=== PATIENT | male | born 1955 | race Caucasian/White ===

== ENCOUNTER 2017-01-24 07:21 | Emergency (ER) | payer SELFPAY ==
[~2017-01-24] VITALS: Ht 190.5 cm; Wt 164.0 kg
[~2017-01-24 07:21] MED LIST: DIAZ5 PO; FLEX10TA PO; GABA800T PO; IBUP-238 PO; LORTA10 PO; LORTA5 PO; XANA1TAB6 PO
[2017-01-24 07:25] VITALS: BP 156/96; PULSE 81; RESP 18; TEMP 98.6; O2SAT 94
[2017-01-24] MEDS ORDERED: XANA1TAB2 PO (07:39)
--- NOTE | 2017-01-24 07:53 | PD ---
HPI . Left knee pain Chief Complaint: Musculoskeletal Complaint Time Seen by Provider: 07:41 Travel History International Travel<30 days: No Contact w/Intl Traveler<30days: No Traveled to known affect area: No History of Present Illness HPI Patient presents with about a 10 day history of left knee pain. He works as a transporter driving a van. He was working in the [employer] when he got out of the van and his left foot slipped causing his left knee to twist. He has had pain in his left knee since then. Pain is exacerbated by walking and getting in and out of the van. He states that he has taken ibuprofen and aspirin with no relief of his pain. He reports associated muscle cramps around the knee. [facility] Past Medical History Anxiety: Yes Depression: Yes Cancer: No Cardiovascular Problems: No Diminished Hearing: No Endocrine: No Genitourinary: No Immune Disorder: No Implanted Vascular Access Dvce: No Musculoskeletal: Yes (chronic back pain since 1993) Neurologic: No Psychiatric: Yes Reproductive: No Respiratory: No Influenza Vaccination: No ?: Not Past Surgical History Oral Surgery: Yes (TONSILLECTOMY) Tonsillectomy: Yes Other Surgery: Yes Social History Alcohol Use: No Tobacco Use: No Substance Use: Yes (MARIJUANA) Allergies-Medications (Allergen,Severity, Reaction): Coded Allergies: Sulfa (Verified Allergy, Intermediate, 01/24/17) Erythromycin (Verified Allergy, Mild, 01/24/17) *MDRO Multi-Drug Resistant Organism (Verified Allergy, Unknown, 01/24/17) 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 SKIN: Warm and dry. CARDIOVASCULAR: Regular rate and rhythm. RESPIRATORY: No accessory muscle use. MUSCULOSKELETAL: No obvious deformities. No edema. Tender to the lateral aspect of the left knee. Knee is stable. NEUROLOGICAL: Awake and alert. No obvious cranial nerve deficits. Motor grossly within normal limits. Normal speech. PSYCHIATRIC: Appropriate mood and affect; insight and judgment normal. Data Data Last Documented VS Vital Signs Date Time Temp Pulse Resp B/P Pulse Ox O2 Delivery O2 Flow Rate FiO2 01/24/17 08:21 16 01/24/17 07:25 98.6 81 156/96 94 Orders Knee, Complete (4vws) (01/24/17 07:46) Morphine Inj (Morphine Inj) (01/24/17 08:00) Lorazepam Inj (Ativan Inj) (01/24/17 08:00) MDM Medical Decision Making Medical Screen Exam Complete: Yes Emergency Medical Condition: Yes Differential Diagnosis Differential diagnosis of joint pain includes but is not limited to arthritis, gout, sprain/strain, fracture, dislocation Narrative Course Patient presents with left knee pain following a twisting injury 10 days ago. Left knee x-ray to my interpretation is negative for fracture or dislocation. Diagnosis Primary Impression: Strain of left knee Qualified Code: S86.912A - Strain of left knee, initial encounter Referrals: Jasvir Rivera MD 3 days Patient Instructions: General Instructions, Knee Sprain (DC), Narcotic given in the ED Additional Instructions: Rest, ice and elevation Med/Other Pt SpecificInfo: Prescription(s) given Scripts Ibuprofen 800 Mg [id number] Mg PO Q8H PRN (pain) #30 TAB Ref 0 Prov:Aurea Hawley MD 01/24/17 Tramadol (Ultram)50 Mg Tab50 Mg PO Q4H PRN (PAIN) #12 TAB Ref 0 Prov:Aurea Hawley MD 01/24/17 Disposition: 01 DISCHARGE HOME Condition: Stable Aurea Hawley MD Jan 24, 2017 07:53
[2017-01-24] MEDS ORDERED: MORPHINE SULFATE 4 MG/ML INJ IM ONE (08:00)
[2017-01-24] MEDS ORDERED: LORazepam 2 MG/ML VIAL IM ONE (08:00)
[2017-01-24 08:21] VITALS: RESP 16
[2017-01-24] MEDS ORDERED: ULTR50TA5 PO (08:36)
[2017-01-24] MEDS ORDERED: IBUP800T23 PO (08:36)
--- NOTE | 2017-01-24 09:11 | RADHPO ---
EXAM DATE/TIME: 01/24/2017 08:09 [facility] COMPARISON: No previous studies available for comparison. INDICATIONS : Left knee pain. MEDICAL HISTORY : None. SURGICAL HISTORY : None. ENCOUNTER: Initial ACUITY: 1 week PAIN SCORE: 6/10 LOCATION: Left knee FINDINGS: Four view examination of the left knee demonstrates no evidence of fracture or dislocation. Moderate/ severe degenerative changes. No effusion. Diffuse soft tissue swelling. CONCLUSION: Moderate to severe tricompartment osteoarthritis. No fracture. Henrry Brown MD on January 24, 2017 at 9:08 Board Certified Radiologist. This report was verified electronically.
== END 2017-01-24 09:02 | disposition home or self-care (01) ==
LOC: PHED 07:21
DX: S86.812A Strain of other muscle(s) and tendon(s) at lower leg level, left leg, initial encounter (principal); V58.4XXA Person boarding or alighting a pick-up truck or van injured in noncollision transport accident, initial encounter; Y93.9 Activity, unspecified; Y92.9 Unspecified place or not applicable; Y99.0 Civilian activity done for income or pay
CPT/HCPCS: 73564; 96372; 99283; J2060; J2270; L1830

== ENCOUNTER 2017-04-28 00:02 | Emergency (ER) | payer SELFPAY ==
[~2017-04-28] VITALS: Ht 190.5 cm; Wt 160.4 kg
[~2017-04-28 00:02] MED LIST changes: -DIAZ5 PO; -FLEX10TA PO; -GABA800T PO; -IBUP-238 PO; +IBUP800T23 PO; -LORTA10 PO; -LORTA5 PO; +ULTR50TA5 PO; +XANA1TAB2 PO; -XANA1TAB6 PO
[2017-04-28 00:05] VITALS: BP 146/85; PULSE 87; RESP 16; TEMP 98.1; O2SAT 96
[2017-04-28] MEDS ORDERED: oxyCODONE/ACETAMINOPHEN 5 MG/325 MG TAB PO ONE (00:45)
--- NOTE | 2017-04-28 01:17 | PD ---
HPI Chief Complaint: Oral / Dental Pain or Problem Time Seen by Provider: 00:24 Travel History International Travel<30 days: No Contact w/Intl Traveler<30days: No History of Present Illness HPI Patient is a 61 year old male who comes in complaining of tooth pain after he says he knocked his tooth out last night. He says he was working on a car when the tire gertrudis hit him in the face and knocked out one of his lower teeth. He says he has been in severe pain ever since. He says he has a lot of pain when he moves his jaw and has noticed swelling to the area. He has tried taking BC powder for the pain. He denies any other injuries. PFSH Past Medical History Anxiety: Yes Cancer: No Cardiovascular Problems: No Diminished Hearing: No Endocrine: No Genitourinary: No Immune Disorder: No Implanted Vascular Access Dvce: No Musculoskeletal: Yes Neurologic: No Psychiatric: Yes Reproductive: No Respiratory: No Influenza Vaccination: No Past Surgical History Oral Surgery: Yes (TONSILLECTOMY) Tonsillectomy: Yes Other Surgery: Yes Social History Alcohol Use: Yes (SOCIALLY) Tobacco Use: No Substance Use: Yes (MARIJUANA) Allergies-Medications (Allergen,Severity, Reaction): Coded Allergies: Sulfa (Verified Allergy, Intermediate, 01/24/17) Erythromycin (Verified Allergy, Mild, 01/24/17) *MDRO Multi-Drug Resistant Organism (Verified Allergy, Unknown, 01/24/17) 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 Reported Meds & Prescriptions Reported Meds & Active Scripts Active Ibuprofen 800 Mg Tab 800 Mg PO Q8H PRN Ultram (Tramadol HCl) 50 Mg Tab 50 Mg PO Q4H PRN Reported Xanax (Alprazolam) 1 Mg Tab 1 Mg PO HS PRN Review of Systems General / Constitutional: No: Fever, Chills HENT: Positive: Dental Difficulties, No: Headaches, Lightheadedness Cardiovascular: No: Chest Pain or Discomfort Respiratory: No: Shortness of Breath Gastrointestinal: No: Nausea, Vomiting Skin: No Rash, No Change in Pigmentation Neurologic: No: Weakness, Dizziness Physical Exam Narrative GENERAL: Awake and alert, in no acute distress. SKIN: Focused skin assessment warm/dry. HEAD: Atraumatic. Normocephalic. EYES: Pupils equal and round. No scleral icterus. ENT: Mucous membranes pink and moist. edema/fluctuance at tooth 27, which is broken. NECK: Trachea midline. No JVD. CARDIOVASCULAR: Regular rate and rhythm. No murmur appreciated. RESPIRATORY: No accessory muscle use. Clear to auscultation. Breath sounds equal bilaterally. NEUROLOGICAL: Awake and alert. No obvious cranial nerve deficits. Motor grossly within normal limits. Normal speech. PSYCHIATRIC: Appropriate mood and affect; insight and judgment normal. Data Data Last Documented VS Vital Signs Date Time Temp Pulse Resp B/P Pulse Ox O2 Delivery O2 Flow Rate FiO2 04/28/17 00:27 20 04/28/17 00:05 98.1 87 146/85 96 Orders Oxycodone-Acetamin 5-325 Mg (Percocet (04/28/17 00:45) Ct Facial Bones W/O Iv Cont (04/28/17 ) MDM Medical Decision Making Medical Screen Exam Complete: Yes Emergency Medical Condition: Yes Differential Diagnosis Dental abscess versus broken tooth versus jaw fracture Narrative Course Patient is a 61-year-old male who comes in complaining of tooth pain after he hit himself in the face last night and broke his tooth. Exam shows an area of fluctuance around tooth [address] of the facial bones performed shows no jaw fracture. Abscess was I indeed with 2 cc of pus drained. Patient given Percocet for pain. He'll be discharged with a prescription for penicillin and pain medicine. Advised to follow-up with a dentist. Advised to return to the ED as needed for any worsening symptoms. Procedures Procedure Narrative An 18-gauge needle was used to drain the abscess at tooth 27. 2 cc of pus was drained. Patient tolerated the procedure well. There were no complications. Diagnosis Primary Impression: Dental abscess Patient Instructions: Dental Abscess (ED), General Instructions Additional Instructions: Take all of your antibiotic. He can take ibuprofen for pain or a pain pill as needed. Follow-up with a dentist. Return to the ED as needed for any worsening symptoms. Scripts Tramadol 50 Mg Tab50 Mg PO Q6H PRN (PAIN) #14 TAB Ref 0 Prov:Candie Morales MD 04/28/17 Penicillin V Potassium 500 Mg [id number] Mg PO Q8H 7 Days Ref 0 Prov:Candie Morales MD 04/28/17 Disposition: 01 DISCHARGE HOME Condition: Stable Radha Moralesica B MD Apr 28, 2017 01:17
--- NOTE | 2017-04-28 01:31 | RADHPO ---
EXAM DATE/TIME: 04/28/2017 00:59 [facility] COMPARISON: No previous studies available for comparison. INDICATIONS : Trauma to the right side of jawline. Knocked out tooth. RADIATION DOSE: 30.16 CTDIvol (mGy) MEDICAL HISTORY : None SURGICAL HISTORY : Appendectomy. Cholecystectomy.Cervical laminectomy ENCOUNTER: Initial ACUITY: 2 days PAIN SCORE: 2/10 LOCATION: Right facial TECHNIQUE: Volumetric scanning of the facial bones was performed. Using automated exposure control and adjustme nt of the mA and/or kV according to patient size, radiation dose was kept as low as reasonably achiev able to obtain optimal diagnostic quality images. FINDINGS: ORBITS: The orbital and infraorbital osseous structures are intact. The retroconal structures have a normal configuration. No radiopaque foreign bodies are seen. NASAL BONE: The nasal bone and maxillary spine are intact ZYGOMATIC ARCHES: Symmetric without evidence of fracture. SINUSES: The maxillary, ethmoid and frontal sinuses are intact. No air-fluid levels seen. NASAL CAVITY: The nasal septum is intact and midline. The lacrimal ducts are intact. SOFT TISSUES: No radiopaque foreign bodies seen. No soft-tissue swelling is seen. INTRACRANIAL: No intracranial air seen. CRIBIFORM PLATE: Grossly intact. Mandible is intact. Numerous missing, broken and dictating upper and lower teeth. CONCLUSION: Broken and missing teeth, both upper and lower. No facial fracture demonstrated. Mandible intact. Mike Stone MD on April 28, 2017 at 1:28 Board Certified Radiologist. This report was verified electronically.
[2017-04-28] MEDS ORDERED: TRAM50TA PO (01:43)
[2017-04-28] MEDS ORDERED: PENI500T PO (01:43)
[2017-04-28 01:55] VITALS: BP 141/72
== END 2017-04-28 02:05 | disposition home or self-care (01) ==
LOC: PHED 00:02
DX: K04.7 Periapical abscess without sinus (principal)
CPT/HCPCS: 41800; 70486

== ENCOUNTER 2018-01-02 12:26 | Emergency (ER) | payer SELFPAY ==
[~2018-01-02] VITALS: Ht 193 cm; Wt 160.0 kg
[~2018-01-02 12:26] MED LIST changes: +IBUP1TAB7 PO; -IBUP800T23 PO; +PENI500T PO; +TRAM50 PO; +TRAM50TA PO; -ULTR50TA5 PO
[2018-01-02 12:42] VITALS: BP 114/63; PULSE 83; RESP 18; TEMP 99.4; O2SAT 94
[2018-01-02 12:56] LABS: BILIRUBIN, URINE NEG (NEG); BLOOD, URINE MOD (NEG); GLUCOSE,URINE NEG (NEG); KETONE, URINE NEG (NEG); NITRITE,URINE NEG (NEG); URINE LEUKOCYTE ESTERASE NEG (NEG)
[2018-01-02 13:02] LABS: URINE COLOR YELLOW (YELLW/STRAW)
[2018-01-02 13:03] LABS: AMORPHOUS SEDIMENT, URINE FEW; SQUAMOUS EPITHELIAL CELL URINE 0-5 /hpf (0-5)
[2018-01-02] MEDS ORDERED: SODIUM CHLORIDE 0.9% FLUSH 10 ML FLUSH IV FLUSH PRN (13:30)
[2018-01-02] MEDS ORDERED: ONDANSETRON HCL 4 MG/2 ML VIAL IVP ONE (13:30)
[2018-01-02] MEDS ORDERED: SODIUM CHLORID 0.9% 500 ML INJ 500 ML IV ONE (13:30)
[2018-01-02] MEDS ORDERED: KETOROLAC TROMETHAMINE 30 MG/ML (IVP) VIAL IVP ONE (13:30)
[2018-01-02 13:55] LABS: BASOPHIL % 0.9 % (0.0-2.0); EOSINOPHIL # 0.1 TH/MM3 (0-0.4); EOSINOPHIL % 1.9 % (0.0-4.0); HEMATOCRIT 47.8 % (39.0-51.0); HEMOGLOBIN 15.4 GM/DL (13.0-17.0); LYMPH % 29.1 % (9.0-44.0); LYMPHOCYTE # 1.5 TH/MM3 (1.0-4.8); MEAN CELL VOLUME 84.8 FL (80.0-100.0); MEAN CORPUSCULAR HEMOGLOBIN 27.3 PG (27.0-34.0); MEAN CORPUSCULAR HGB CONC 32.2 % (32.0-36.0); MEAN PLATELET VOLUME 7.9 FL (7.0-11.0); MONOCYTE # 0.7 TH/MM3 (0-0.9); NEUT % 54.1 % (16.0-70.0); PLATELET COUNT 239 TH/MM3 (150-450); RED BLOOD COUNT 5.63 MIL/MM3 (4.50-5.90); RED CELL DISTRIBUTION WIDTH 14.2 % (11.6-17.2); WHITE BLOOD COUNT 5.3 TH/MM3 (4.0-11.0)
[2018-01-02 14:05] LABS: CHLORIDE 103 MEQ/L (98-107); SODIUM (NA) 140 MEQ/L (136-145)
[2018-01-02 14:08] LABS: CALCIUM 8.3 MG/DL (8.5-10.1); PROTHROMBIN TIME - PATIENT 10.2 SEC (9.8-11.6)
[2018-01-02 14:09] LABS: ALBUMIN 3.6 GM/DL (3.4-5.0); BLOOD UREA NITROGEN 17 MG/DL (7-18); GLUCOSE,RANDOM 107 MG/DL (74-106)
[2018-01-02 14:12] LABS: ALT (GPT) 33 U/L (12-78); AST (GOT) 34 U/L (15-37); CREATININE 0.94 MG/DL (0.60-1.30); GLOMERULAR FILTRATION RATE 82 ML/MIN (>89)
[2018-01-02 14:14] LABS: TOTAL BILIRUBIN ADULT 0.5 MG/DL (0.2-1.0); TOTAL PROTEIN 8.2 GM/DL (6.4-8.2)
--- NOTE | 2018-01-02 14:14 | PD ---
HPI Chief Complaint: Flank/Kidney Pain Time Seen by Provider: 13:11 Travel History International Travel<30 days: No Contact w/Intl Traveler<30days: No Traveled to known affect area: No History of Present Illness HPI Patient is a 62 year old male who comes in complaining of flu like symptoms and some right sided abdominal pain. He says he has had the RLQ pain for the past 3 weeks. He says that he had a ruptured appendix several years ago, but he never had surgery for it. He says the pain is preventing him from sleeping and he is unable to get comfortable. He also reports urinary frequency and getting up multiple times at night to urinate. He says Monday he started to feel feverish, have some congestion and generalized body aches. He says there are several people at work who have flu like symptoms. He has not taken anything to improve his symptoms. Severity is moderate. PFSH Past Medical History Anxiety: Yes Cancer: No Cardiovascular Problems: No Diminished Hearing: No Endocrine: No Genitourinary: No Immune Disorder: No Implanted Vascular Access Dvce: No Musculoskeletal: Yes Neurologic: No Psychiatric: Yes Reproductive: No Respiratory: No ?: Not Past Surgical History Oral Surgery: Yes (TONSILLECTOMY) Tonsillectomy: Yes Other Surgery: Yes Social History Alcohol Use: Yes (SOCIALLY) Tobacco Use: No Substance Use: Yes (MARIJUANA) Allergies-Medications (Allergen,Severity, Reaction): Coded Allergies: Sulfa (Sulfonamide Antibiotics) (Unverified Allergy, Intermediate, 07/04/17 ) erythromycin base (Unverified Allergy, Mild, 07/04/17) *MDRO Multi-Drug Resistant Organism (Verified Allergy, Unknown, 01/24/17) 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 Reported Meds & Prescriptions Reported Meds & Active Scripts Active No Active Prescriptions or Reported Medications Review of Systems Except as stated in HPI: all other systems reviewed are Neg General / Constitutional: Positive: Fever, Chills HENT: Positive: Congestion, No: Headaches, Lightheadedness Cardiovascular: No: Chest Pain or Discomfort Respiratory: Positive: Cough Gastrointestinal: Positive: Abdominal Pain, No: Nausea Genitourinary: Positive: Urgency, Frequency Musculoskeletal: No: Myalgias, Edema Skin: No Rash, No Change in Pigmentation Neurologic: No: Weakness, Dizziness Physical Exam Narrative GENERAL: Awake and alert, in no acute distress. SKIN: Focused skin assessment warm/dry. HEAD: Atraumatic. Normocephalic. EYES: Pupils equal and round. No scleral icterus. ENT: Mucous membranes pink and moist. NECK: Trachea midline. No JVD. CARDIOVASCULAR: Regular rate and rhythm. No murmur appreciated. RESPIRATORY: No accessory muscle use. Clear to auscultation. Breath sounds equal bilaterally. GASTROINTESTINAL: Abdomen soft, nondistended. Mild RLQ tenderness to palpation, no rebound or guarding. MUSCULOSKELETAL: No obvious deformities. No clubbing. No cyanosis. No edema. NEUROLOGICAL: Awake and alert. No obvious cranial nerve deficits. Motor grossly within normal limits. Normal speech. PSYCHIATRIC: Appropriate mood and affect; insight and judgment normal. Data Data Last Documented VS Vital Signs Date Time Temp Pulse Resp B/P (MAP) Pulse Ox O2 Delivery O2 Flow Rate FiO2 01/02/18 15:20 75 18 142/84 (103) 97 Room Air 01/02/18 12:42 99.4 Orders Orders Urinalysis - C+S If Indicated (01/02/18 12:38) Complete Blood Count With Diff (01/02/18 13:21) Comprehensive Metabolic Panel (01/02/18 13:21) Prothrombin Time / Inr (Pt) (01/02/18 13:21) Act Partial Throm Time (Ptt) (01/02/18 13:21) Ct Abd/Pel W Iv Contrast(Rout) (01/02/18 13:21) Iv Access Insert/Monitor (01/02/18 13:21) Ecg Monitoring (01/02/18 13:21) Oximetry (01/02/18 13:21) Ondansetron Inj (Zofran Inj) (01/02/18 13:30) Sodium Chloride 0.9% Flush (Ns Flush) (01/02/18 13:30) Ketorolac Inj (Toradol Inj) (01/02/18 13:30) Sodium Chlorid 0.9% 500 Ml Inj (Ns 500 M (01/02/18 13:30) Influenzae A/B Antigen (01/02/18 13:21) Iohexol 350 Inj (Omnipaque 350 Inj) (01/02/18 14:50) Chest, Single Ap (01/02/18 ) Ed Discharge Order (2/13/18 15:59) Labs Laboratory Tests Test 01/02/18 12:52 01/02/18 13:40 Urine Collection Type CLEAN CATCH Urine Color YELLOW Urine Turbidity CLEAR Urine pH 6.0 Urine Specific [place] 1.021 Urine Protein 30 mg/dL Urine Glucose (UA) NEG mg/dL Urine Ketones NEG mg/dL Urine Occult Blood MOD Urine Nitrite NEG Urine Bilirubin NEG Urine Leukocyte Esterase NEG Urine RBC 10-14 /hpf Urine Squamous Epithelial Cells 0-5 /hpf Urine Amorphous Sediment FEW Microscopic Urinalysis Comment CULT NOT INDICATED Urine Collection Time 1252 White Blood Count 5.3 TH/MM3 Red Blood Count 5.63 MIL/MM3 Hemoglobin 15.4 GM/DL Hematocrit 47.8 % Mean Corpuscular Volume 84.8 FL Mean Corpuscular Hemoglobin 27.3 PG Mean Corpuscular Hemoglobin Concent 32.2 % Red Cell Distribution Width 14.2 % Platelet Count 239 TH/MM3 Mean Platelet Volume 7.9 FL Neutrophils (%) (Auto) 54.1 % Lymphocytes (%) (Auto) 29.1 % Monocytes (%) (Auto) 14.0 % Eosinophils (%) (Auto) 1.9 % Basophils (%) (Auto) 0.9 % Neutrophils # (Auto) 3.0 TH/MM3 Lymphocytes # (Auto) 1.5 TH/MM3 Monocytes # (Auto) 0.7 TH/MM3 Eosinophils # (Auto) 0.1 TH/MM3 Basophils # (Auto) 0.0 TH/MM3 CBC Comment DIFF FINAL Differential Comment Prothrombin Time 10.2 SEC Prothromb Time International Ratio 1.0 RATIO Activated Partial Thromboplast Time 28.3 SEC Blood Urea Nitrogen 17 MG/DL Creatinine 0.94 MG/DL Random Glucose 107 MG/DL Total Protein 8.2 GM/DL Albumin 3.6 GM/DL Calcium Level 8.3 MG/DL Alkaline Phosphatase 61 U/L Aspartate Amino Transf (AST/SGOT) 34 U/L Alanine Aminotransferase (ALT/SGPT) 33 U/L Total Bilirubin 0.5 MG/DL Sodium Level 140 MEQ/L Potassium Level 4.0 MEQ/L Chloride Level 103 MEQ/L Carbon Dioxide Level 31.0 MEQ/L Anion Gap 6 MEQ/L Estimat Glomerular Filtration Rate 82 ML/MIN MDM Medical Decision Making Medical Screen Exam Complete: Yes Emergency Medical Condition: Yes Medical Record Reviewed: Yes Differential Diagnosis appendicitis vs colitis vs hernia vs influenza vs viral illness Narrative Course Patient is a 62-year-old male who comes in the waning of right lower quadrant abdominal pain as well as flulike symptoms. Exam shows minimal right lower quadrant tenderness, there is no bone suggesting hernia. IV established, labs sent. Labs show no acute abnormalities. CT abdomen and pelvis performed shows a small fat-containing inguinal hernias, no other acute abnormalities. Patient given IV fluids and pain medicine. Advised to rest, take Tylenol or ibuprofen as needed for pain. Drink plenty of fluids. Return to the ED as needed for any worsening symptoms. Last 24 hours Impressions Abdomen/Pelvis CT 01/02/18 1321 Signed Impressions: Service Date/Time: Tuesday, January 02, 2018 14:37 - CONCLUSION: 1. No acute abnormality to explain the patient's pain. 2. Hepatic steatosis. 3. Left renal cyst. 4. Colonic diverticulosis. 5. Bilateral inguinal hernias containing fat. Marco Hudson Jr., MD Diagnosis Primary Impression: Abdominal pain Qualified Codes: R10.31 - Right lower quadrant pain Additional Impression: Viral illness Patient Instructions: Abdominal Pain (ED), General Instructions, Viral Syndrome (ED) Additional Instructions: Drink plenty of fluids. Take Tylenol or ibuprofen as needed for pain. Return to the ED as needed for any worsening symptoms. Scripts No Active Prescriptions or Reported Meds Disposition: 01 DISCHARGE HOME Condition: Stable Candie Morales MD Jan 02, 2018 14:13
[2018-01-02 14:15] LABS: ALKALINE PHOSPHATASE 61 U/L (45-117)
[2018-01-02 14:20] VITALS: O2SAT 97
[2018-01-02] MEDS ORDERED: IOHEXOL 350 MG/ML 10 ML VIAL (for RAD DIAG) IVCONTRAST ONE (14:50)
--- NOTE | 2018-01-02 15:18 | RADRPT ---
EXAM DATE/TIME: 01/02/2018 14:37 [facility] COMPARISON: No previous studies available for comparison. INDICATIONS : Right lower quadrant pain, with nausea, vomiting and urinary frequency and retention. IV CONTRAST: 95 cc Omnipaque 350 (iohexol) IV ORAL CONTRAST: No oral contrast ingested. RADIATION DOSE: 29.08 CTDIvol (mGy) ; Patient body habitus MEDICAL HISTORY : Ruptured appendix SURGICAL HISTORY : Cervical fusion. ENCOUNTER: Initial ACUITY: 4 - 6 days PAIN SCALE: 4/10 LOCATION: Right lower quadrant TECHNIQUE: Volumetric scanning of the abdomen and pelvis was performed. Using automated exposure control and ad justment of the mA and/or kV according to patient size, radiation dose was kept as low as reasonably achievable to obtain optimal diagnostic quality images. DICOM format image data is available electro nically for review and comparison. FINDINGS: LOWER LUNGS: The visualized lower lungs are clear. LIVER: The liver is diffusely low in attenuation. No mass or ductal dilatation. Gallbladder is unremarkable. Portal vein is patent. SPLEEN: Normal size without lesion. PANCREAS: Within normal limits. KIDNEYS: Normal in size and shape. There is no mass, stone or hydronephrosis. 5.4 cm cyst involving the midpo le the left kidney. Hounsfield units are 14. ADRENAL GLANDS: Within normal limits. VASCULAR: There is no aortic aneurysm. BOWEL/MESENTERY: The stomach, small bowel, and colon demonstrate no acute abnormality. There is no free intraperitone al air or fluid. Scattered diverticuli throughout the colon without acute inflammation. The appendix is normal by CT criteria. ABDOMINAL WALL: Within normal limits. RETROPERITONEUM: There is no lymphadenopathy. BLADDER: No wall thickening or mass. REPRODUCTIVE: Within normal limits. INGUINAL: There is no lymphadenopathy. Bilateral inguinal hernias containing fat. MUSCULOSKELETAL: Within normal limits for patient age. CONCLUSION: 1. No acute abnormality to explain the patient's pain. 2. Hepatic steatosis. 3. Left renal cyst. 4. Colonic diverticulosis. 5. Bilateral inguinal hernias containing fat. Marco Hudson Jr., MD on January 02, 2018 at 15:11 Board Certified Radiologist. This report was verified electronically.
[2018-01-02 15:20] VITALS: BP 142/84; PULSE 75; RESP 18; O2SAT 97
--- NOTE | 2018-01-02 15:55 | RADRPT ---
EXAM DATE/TIME: 01/02/2018 15:18 [facility] COMPARISON: No previous studies available for comparison. INDICATIONS : Cough and flu symptoms for 4 days. MEDICAL HISTORY : None. SURGICAL HISTORY : None. ENCOUNTER: Initial ACUITY: 4 - 6 days PAIN SCORE: 0/10 LOCATION: Bilateral chest FINDINGS: 2 portable frontal views of the chest show no discrete infiltrate or effusion. Heart is normal in siz e. Bony structures are unremarkable. CONCLUSION: No acute cardiopulmonary disease. Marco Hudson Jr., MD on January 02, 2018 at 15:52 Board Certified Radiologist. This report was verified electronically.
== END 2018-01-02 16:20 | disposition home or self-care (01) ==
LOC: PHED 12:26
DX: R10.31 Right lower quadrant pain (principal); B34.9 Viral infection, unspecified
CPT/HCPCS: 71045; 74177; 80053; 81001; 85025; 85610; 85730; 87804; 96361; 96374; 96375; 99285; J1885; J2405; J7040; Q9967